=== PATIENT | female | born 1960 | race Caucasian/White ===

== ENCOUNTER → 2017-06-19 15:40 | Outpatient (CLI) | payer MEDICAID ==
[2016-03-27 10:53] VITALS: BMI 26.0
[~2017-06-19 15:40] MED LIST: CYCLOBENZAPRINE10 MG PO; HYDROCODONE-APA1 TAB; LAMICTAL200 MG PO; LISINOPRIL10 MG PO; PERCOCET 10/3251 TA1 PO; PROZAC20 MG PO
== END | disposition home or self-care (01) ==
LOC: D.MRI 15:40
DX: M25.552 Pain in left hip (principal); M25.551 Pain in right hip

== ENCOUNTER → 2017-07-03 15:40 | Outpatient (CLI) | payer MEDICAID ==
[2016-03-27 10:53] VITALS: BMI 26.0
== END | disposition home or self-care (01) ==
LOC: D.MAMMO 13:15
DX: Z12.31 Encounter for screening mammogram for malignant neoplasm of breast (principal)

== ENCOUNTER → 2017-11-06 12:26 | Outpatient (CLI) | payer MEDICAID ==
[2016-03-27 10:53] VITALS: BMI 26.0
== END | disposition home or self-care (01) ==
LOC: D.MRI 12:26
DX: R22.41 Localized swelling, mass and lump, right lower limb (principal); R41.82 Altered mental status, unspecified

== ENCOUNTER 2019-05-19 11:40 | Emergency (ER) | payer MEDICAID ==
[~2019-05-19] VITALS: Ht 167.6 cm; Wt 65.8 kg
[2019-05-19 11:42] VITALS: Ht 167.6 cm; Wt 65.8 kg
[2019-05-19] MEDS ORDERED: BUPROPION HCL75 MG PO (11:45)
[2019-05-19] MEDS ORDERED: KLONOPIN1 MG PO (11:45)
[2019-05-19] MEDS ORDERED: ZANAFLEX4 MG PO (11:46)
[2019-05-19] MEDS ORDERED: LITHIUM CARBON300 MG PO (11:46)
[2019-05-19] MEDS ORDERED: HYDROCHLOROTHIA25 MG PO (11:46)
[2019-05-19 12:16] LABS: BASOPHILS 0.4 % (0-2); EOSINOPHILS 3.7 % (0-7); HEMATOCRIT 40.3 % (36.0-48.0); HEMOGLOBIN 13.7 g/dL (12-16); IMMATURE GRANULOCYTES 0.1 % (0-5); LYMPHOCYTES 34.2 % (15-50); MCH 29.1 pg (26.0-34.0); MCV 85.6 fL (80.0-100.0); MEAN PLATELET VOLUME 9.6 fL (7.4-10.4); MONOCYTES 7.8 % (2-11); NEUTROPHILS 53.8 % (40-80); PLATELET COUNT 341 10x3/uL (130-400); RBC 4.71 10x6/uL (4.00-5.40); RDW 12.9 % (11.5-14.5)
[2019-05-19 12:30] LABS: ANION GAP 13.2 mmol/L (8-16); BILIRUBIN - TOTAL 0.28 mg/dL (0.2-1.3); CALCIUM 9.6 mg/dL (8.5-10.1); CREATININE - SERUM 1.1 mg/dL (0.6-1.3); POTASSIUM - SERUM 4.2 mmol/L (3.5-5.1); PROTEIN - SERUM 7.7 g/dL (6.4-8.2)
[2019-05-19 12:36] LABS: SALICYLATES 1.9 mg/dL (2.8-20.0)
[2019-05-19 12:37] LABS: LITHIUM < 0.20 mmol/L (0.60-1.20)
[2019-05-19 12:41] LABS: UDS - AMPHET NEGATIVE QUAL (NEGATIVE); UDS - BARB NEGATIVE QUAL (NEGATIVE); UDS - BENZO NEGATIVE QUAL (NEGATIVE); UDS - COCAINE NEGATIVE QUAL (NEGATIVE); UDS - OPIATE NEGATIVE QUAL (NEGATIVE); UDS - PCP NEGATIVE QUAL (NEGATIVE); UDS - THC NEGATIVE QUAL (NEGATIVE)
[2019-05-19 12:57] LABS: APPEARANCE CLEAR (CLEAR); BILIRUBIN NEGATIVE (NEGATIVE); COLOR YELLOW (YELLOW); GLUCOSE NEGATIVE (NEGATIVE); KETONE NEGATIVE (NEGATIVE); NITRITE NEGATIVE (NEGATIVE); PROTEIN TRACE mg/dL (NEGATIVE); UROBILINOGEN NORMAL (NORMAL)
[2019-05-19 12:58] LABS: BACTERIA FEW /hpf (NONE SEEN); EPITHELIAL CELLS 0-5 /hpf (0-5); MUCUS <1+ /lpf (NONE SEEN); WHITE CELLS - URINE OCC /hpf (0-5)
--- NOTE | 2019-05-19 13:00 | NUR ---
DR. CHAVIRA NOTIFIED AND 1:1 SITTER OBSERVATION ORDERED. SITTER AT BEDSIDE. NOTIFIED CHARGE NURSE AND ATTENDING IN REGARDS TO ASSESSMENT FINDINGS. RESOURCES GIVEN TO PT AND SAFETY PLAN INITIATED.
[2019-05-19 20:45] VITALS: BP 118/72
== END 2019-05-19 21:17 ==
LOC: D.ER 11:40
PROVIDERS: Family Medicine
DX: F32.9 Major depressive disorder, single episode, unspecified (principal); R45.851 Suicidal ideations; F41.9 Anxiety disorder, unspecified; F60.3 Borderline personality disorder; I10 Essential (primary) hypertension